=== PATIENT | female | born 1975 | race Caucasian/White ===

== ENCOUNTER 2021-08-25 21:22 | Emergency (ER) | payer OTHER ==
[~2021-08-25] VITALS: Ht 177.8 cm; Wt 90.7 kg
[2021-08-25 22:05] LABS: INFLUENZA A ANTIGEN Negative (Negative); INFLUENZA B ANTIGEN Negative (Negative)
[2021-08-25] MEDS ORDERED: HYDROCODONE-CH115 ML PO (22:33)
[2021-08-25] MEDS ORDERED: PREDNISONE50 MG PO (22:33)
[2021-08-25] MEDS ORDERED: PROAIR HFA8.5 GM INH (22:33)
[2021-08-25 22:41] VITALS: BP 139/93
== END 2021-08-25 22:43 | disposition home or self-care (01) ==
LOC: M.ERS 21:22
PROVIDERS: Emergency Medicine
DX: J06.9 Acute upper respiratory infection, unspecified (principal); Z20.822 Contact with and (suspected) exposure to COVID-19; Z88.0 Allergy status to penicillin